=== PATIENT | female | born 1945 | race Caucasian/White ===

== ENCOUNTER 2022-06-09 14:16 | Outpatient (CLI) | payer MEDICARE, BC ==
[~2022-06-09 14:16] MED LIST: ACET-2615 PO; ALBU8.5H17 IH; BUPR150T23 PO; CALC-995 PO; CHOL100046 PO; CODE118S2 PO; FLUO10CA PO; FLUT16SP2 BOTHNARES; FLUT1DIS INH; GUAI-425 PO; IBUP-24 PO; LACT1CAP77 PO; LEVO25TA2 PO; MONT-40 PO; OMEP20TA43 PO; Rolaids PO; SIMV-42 PO; ZOLP5TAB8 PO
== END 2022-06-09 23:59 | disposition home or self-care (01) ==
LOC: RAD 14:16
PROVIDERS: ATTEND Internal Medicine Pulmonary Disease
DX: K21.9 Gastro-esophageal reflux disease without esophagitis (principal); R13.14 Dysphagia, pharyngoesophageal phase
CPT/HCPCS: 74230

== ENCOUNTER 2023-02-10 13:15 | Emergency (ER) | payer MEDICARE, BC ==
[~2023-02-10] VITALS: Ht 162.6 cm; Wt 78.6 kg
[2023-02-10 13:34] LABS: BASOPHILS # (AUTO) 0.1 X10'3 (0-0.2); BASOPHILS % (AUTO) 0.9 % (0-1); EOSINOPHILS # (AUTO) 0.6 X10'3 (0-0.9); EOSINOPHILS % (AUTO) 8.4 % (0-6); HEMATOCRIT 35.2 % (35.0-45.0); HEMOGLOBIN 11.7 g/dl (12.0-16.0); LYMPHOCYTES % (AUTO) 15.8 % (21-51); MEAN CORPUSCULAR HEMOGLOBIN 30.1 PG (27.0-31.0); MEAN CORPUSCULAR HGB CONC 33.2 g/dL (33.0-36.5); MEAN CORPUSCULAR VOLUME 90.9 FL (78-98); MEAN PLATELET VOLUME 8.3 FL (7.4-10.4); MONOCYTES # (AUTO) 0.6 X10'3 (0-0.9); MONOCYTES % (AUTO) 8.6 % (2-12); NEUTROPHILS # (AUTO) 4.4 X10'3 (1.8-7.7); NEUTROPHILS % (AUTO) 66.3 % (42-75); PLATELET COUNT 262 X10'3 (140-440); RED BLOOD COUNT 3.88 X10'6 (4.20-5.60); RED CELL DISTRIBUTION WIDTH 14.1 % (11.5-14.5); WHITE BLOOD COUNT 6.6 X10'3 (4.5-11.0)
[2023-02-10 13:49] LABS: ALANINE AMINOTRANSFERASE 17 U/L (12-78); ALBUMIN 3.4 G/DL (3.4-5.0); ALKALINE PHOSPHATASE 75 IU/L (46-116); ANION GAP 6 (8-16); ASPARTATE AMINO TRANSFERASE 20 U/L (10-37); BILIRUBIN,TOTAL 0.2 MG/DL (0.1-1.0); BLOOD UREA NITROGEN 23 MG/DL (7-18); BUN/CREATININE RATIO 20.7 (10.0-20.0); CALCIUM 8.7 MG/DL (8.5-10.1); CHLORIDE 105 MMOL/L (99-107); CREATININE 1.11 MG/DL (0.40-0.90); GLUCOSE 112 MG/DL (70-104); POTASSIUM 4.3 MMOL/L (3.5-5.1); SODIUM 136 MMOL/L (135-145); TOTAL CARBON DIOXIDE 25.5 MMOL/L (24-32); TOTAL PROTEIN 6.9 G/DL (6.4-8.2); eGFR 48 ML/MIN
[2023-02-10 13:56] LABS: MAGNESIUM 1.9 MG/DL (1.5-2.4)
[2023-02-10 14:32] LABS: LIPASE 116 U/L (73-393)
[2023-02-10 14:49] VITALS: BP 91/57
[2023-02-10] MEDS ORDERED: LEVO25TA2 PO (15:13)
[2023-02-10] MEDS ORDERED: OMEP20TA43 PO (15:13)
[2023-02-10] MEDS ORDERED: CARV-50 PO (15:13)
[2023-02-10] MEDS ORDERED: ESCI5TAB PO (15:13)
[2023-02-10] MEDS ORDERED: VALS80TA2 PO (15:13)
[2023-02-10] MEDS ORDERED: VALS160T2 PO (15:23)
== END 2023-02-10 15:46 | disposition home or self-care (01) ==
LOC: ER 13:16
DX: I95.9 Hypotension, unspecified (principal); K21.9 Gastro-esophageal reflux disease without esophagitis; J45.909 Unspecified asthma, uncomplicated; Z79.899 Other long term (current) drug therapy
CPT/HCPCS: 36415; 80053; 83690; 83735; 83880; 84484; 85025; 93005; 99284

== ENCOUNTER 2023-12-28 08:52 | Outpatient (CLI) | payer MEDICARE, BC ==
[2023-12-28] VITALS (8 sets, daily range): BP systolic 143–195; BP diastolic 65–93; PULSE 67–88; RESP 14–18; O2SAT 99–100
[~2023-12-28] VITALS: Ht 165.1 cm; Wt 81.2 kg
[~2023-12-28 08:52] MED LIST changes: -BUPR150T23 PO; +CARV-50 PO; +ESCI5TAB PO; -FLUO10CA PO; -FLUT1DIS INH; -IBUP-24 PO; -MONT-40 PO; +VALS80TA2 PO
[2023-12-28] MEDS ORDERED: normal saline 500ml IV soln 500 ML IV ONE (09:45)
[2023-12-28] MEDS ORDERED: nitroGLYCERIN 0.4mg SUBLingual tab SL PRN (09:45)
[2023-12-28] MEDS ORDERED: metoprolol tartrate 1mg/ml inj IV PRN (09:45)
[2023-12-28] MEDS: regadenoson 0.4mg/5ml syringe IV ONE (09:45)
== END 2023-12-28 23:59 | disposition home or self-care (01) ==
LOC: RAD 08:52
PROVIDERS: ATTEND Internal Medicine Cardiovascular Disease
DX: I25.9 Chronic ischemic heart disease, unspecified (principal); R07.9 Chest pain, unspecified; R06.02 Shortness of breath
CPT/HCPCS: 78452; 93017; A9500; J2785; J7040

== ENCOUNTER 2024-01-06 10:11 | Day surgery (SDC) | payer MEDICARE, BC ==
[2024-01-05 12:32] LABS: BASOPHILS # (AUTO) 0.1 X10'3 (0-0.2); BASOPHILS % (AUTO) 0.8 % (0-1); EOSINOPHILS # (AUTO) 0.2 X10'3 (0-0.9); EOSINOPHILS % (AUTO) 3.4 % (0-6); HEMATOCRIT 34.8 % (35.0-45.0); HEMOGLOBIN 11.4 g/dl (12.0-16.0); LYMPHOCYTES # (AUTO) 0.9 X10'3 (1.1-4.8); LYMPHOCYTES % (AUTO) 13.2 % (21-51); MEAN CORPUSCULAR HEMOGLOBIN 29.3 PG (27.0-31.0); MEAN CORPUSCULAR HGB CONC 32.8 g/dL (33.0-36.5); MEAN CORPUSCULAR VOLUME 89.4 FL (78-98); MONOCYTES # (AUTO) 0.9 X10'3 (0-0.9); NEUTROPHILS % (AUTO) 70.6 % (42-75); PLATELET COUNT 284 X10'3 (140-440); RED BLOOD COUNT 3.89 X10'6 (4.20-5.60); RED CELL DISTRIBUTION WIDTH 15.1 % (11.5-14.5); WHITE BLOOD COUNT 7.1 X10'3 (4.5-11.0)
[~2024-01-06] VITALS: Ht 162.6 cm; Wt 85.0 kg
[2024-01-06] VITALS (10 sets, daily range): BP systolic 123–162; BP diastolic 50–90; PULSE 67–100; RESP 14–19; TEMP 98.1; O2SAT 95–98
[2024-01-06] MEDS ORDERED: ESCI20TA39 PO (10:48)
[2024-01-06] MEDS ORDERED: LEVO125T68 (10:48)
[2024-01-06] MEDS ORDERED: MECO10005 PO (10:48)
[2024-01-06] MEDS ORDERED: FLUT1BLS10 (10:48)
[2024-01-06] MEDS ORDERED: FERR-119 PO (10:48)
[2024-01-06] MEDS ORDERED: BENZ-38 PO (10:48)
[2024-01-06] MEDS ORDERED: TRAM50TA2 PO (10:48)
[2024-01-06 10:56] LABS: BASOPHILS % (AUTO) 0.8 % (0-1); EOSINOPHILS # (AUTO) 0.3 X10'3 (0-0.9); EOSINOPHILS % (AUTO) 4.3 % (0-6); HEMATOCRIT 35.1 % (35.0-45.0); HEMOGLOBIN 11.6 g/dl (12.0-16.0); LYMPHOCYTES % (AUTO) 15.2 % (21-51); MEAN CORPUSCULAR HEMOGLOBIN 29.3 PG (27.0-31.0); MEAN CORPUSCULAR HGB CONC 32.9 g/dL (33.0-36.5); MEAN CORPUSCULAR VOLUME 88.9 FL (78-98); MONOCYTES # (AUTO) 0.6 X10'3 (0-0.9); MONOCYTES % (AUTO) 9.4 % (2-12); NEUTROPHILS # (AUTO) 4.5 X10'3 (1.8-7.7); NEUTROPHILS % (AUTO) 70.3 % (42-75); PLATELET COUNT 299 X10'3 (140-440); RED BLOOD COUNT 3.95 X10'6 (4.20-5.60); RED CELL DISTRIBUTION WIDTH 15.1 % (11.5-14.5); WHITE BLOOD COUNT 6.4 X10'3 (4.5-11.0)
[2024-01-06 11:07] LABS: APTT 27 SECONDS (22-32); PROTHROMBIN TIME 10.6 SECONDS (9.0-12.0)
[2024-01-06] MEDS: normal saline 1,000 ML IV SCH (11:08)
[2024-01-06 11:09] LABS: ALBUMIN 3.2 G/DL (3.4-5.0); ANION GAP 12 (8-16); BLOOD UREA NITROGEN 19 MG/DL (7-18); BUN/CREATININE RATIO 21.1 (10.0-20.0); CALCIUM 8.7 MG/DL (8.5-10.1); CHLORIDE 103 MMOL/L (99-107); GLUCOSE 92 MG/DL (70-104); POTASSIUM 4.4 MMOL/L (3.5-5.1); SODIUM 141 MMOL/L (135-145); TOTAL CARBON DIOXIDE 26.4 MMOL/L (24-32); eCRCL 44 ML/MIN; eGFR 61 ML/MIN
[2024-01-06] MEDS: LORazepam 0.5 MG tablet PO PRN (11:09)
[2024-01-06] MEDS: diphenhydrAMINE 25mg capsule PO PRN (11:09)
[2024-01-06] MEDS ORDERED: iohexol 350MG/ML 100ml bottle IV ONE (11:40)
[2024-01-06] MEDS ORDERED: LIDOcaine 1% (10mg/ml) 2ml vial ONE (11:40)
[2024-01-06] MEDS ORDERED: verapamil 2.5 mg/ml inj IV ONE (11:40)
[2024-01-06] MEDS ORDERED: iohexol 350 MG/ML 50ML vial IV ONE ×2 (11:40→13:30)
[2024-01-06] MEDS ORDERED: nitroGLYCERIN 500mcg/5mL D5W 5 ML IV ONE (11:41)
[2024-01-06] MEDS ORDERED: fentaNYL/PF 50MCG/1 ML 2ML syringe ONE (11:41)
[2024-01-06] MEDS ORDERED: midazolam 1 mg/ML 2ml injection ONE (11:41)
[2024-01-06] MEDS ORDERED: heparin 1,000unit/ml 10ml vial 10 ML ONE (11:41)
[2024-01-06] MEDS ORDERED: LIDOcaine 1% 30ml preserv. free vial ONE (13:04)
[2024-01-06] MEDS ORDERED: hydrALAZINE 20mg/ml inj. IV ONE (13:26)
[2024-01-06 13:57] LABS: ISTAT HGB ART 10.5 g/dl (12.0-16.0); ISTAT Hct ART 31 %PCV (35-45); ISTAT O2 SATURATION ARTERIAL 97 % (95-98); ISTAT SOURCE ART
[2024-01-09 06:34] LABS: ISTAT HGB MIX 11.2 g/dl (12.0-16.0); ISTAT Hct MIX 33 %PCV (35-45); ISTAT O2 SATURATION MIX VENOUS 69 % (60-80); ISTAT SOURCE OTHER
== END 2024-01-06 18:00 | disposition home or self-care (01) ==
LOC: SSTAY O 10:11
PROVIDERS: ATTEND Internal Medicine Cardiovascular Disease
DX: R94.39 Abnormal result of other cardiovascular function study (principal); I10 Essential (primary) hypertension; E03.9 Hypothyroidism, unspecified; E78.5 Hyperlipidemia, unspecified; J45.909 Unspecified asthma, uncomplicated; E66.3 Overweight; Z79.899 Other long term (current) drug therapy; Z90.710 Acquired absence of both cervix and uterus; Z98.890 Other specified postprocedural states; Z68.32 Body mass index [BMI] 32.0-32.9, adult; Z82.49 Family history of ischemic heart disease and other diseases of the circulatory system; Z82.3 Family history of stroke
CPT/HCPCS: 36415; 76937; 80048; 82803; 82948; 85014; 85025; 85610; 85730; 93005; 93460; 99152; 99153; J0360; J1644; J2250; J3010; J3490; J7030; Q0163; Q9967; A6258; A6402; A6449; C1725; C1751; C1769; C1894

== ENCOUNTER 2024-12-26 01:03 | Emergency (ER) | payer MEDICARE, BC ==
[~2024-12-26] VITALS: Ht 160 cm; Wt 77.0 kg
[~2024-12-26 01:03] MED LIST changes: -ALBU8.5H17 IH; +BENZ-38 PO; -CARV-50 PO; -CODE118S2 PO; +ESCI20TA39 PO; -ESCI5TAB PO; +FERR-119 PO; +FLUT1BLS10; -LACT1CAP77 PO; +LEVO125T68; -LEVO25TA2 PO; +MECO10005 PO; -Rolaids PO; +TRAM50TA2 PO; -VALS80TA2 PO
[2024-12-26 01:11] VITALS: TEMP 98.8
[2024-12-26 01:51] LABS: BASOPHILS % (AUTO) 0.6 % (0-1); EOSINOPHILS # (AUTO) 0.1 X10'3 (0-0.9); EOSINOPHILS % (AUTO) 1.2 % (0-6); HEMATOCRIT 34.6 % (35.0-45.0); HEMOGLOBIN 11.6 g/dl (12.0-16.0); LYMPHOCYTES # (AUTO) 0.5 X10'3 (1.1-4.8); LYMPHOCYTES % (AUTO) 7.7 % (21-51); MEAN CORPUSCULAR HEMOGLOBIN 29.8 PG (27.0-31.0); MEAN CORPUSCULAR HGB CONC 33.4 g/dL (33.0-36.5); MEAN CORPUSCULAR VOLUME 89.2 FL (78-98); MONOCYTES # (AUTO) 0.7 X10'3 (0-0.9); MONOCYTES % (AUTO) 9.2 % (2-12); NEUTROPHILS # (AUTO) 5.8 X10'3 (1.8-7.7); NEUTROPHILS % (AUTO) 81.3 % (42-75); PLATELET COUNT 243 X10'3 (140-440); RED BLOOD COUNT 3.88 X10'6 (4.20-5.60); RED CELL DISTRIBUTION WIDTH 14.2 % (11.5-14.5); WHITE BLOOD COUNT 7.1 X10'3 (4.5-11.0)
[2024-12-26 01:59] LABS: ALBUMIN 3.4 G/DL (3.4-5.0); ANION GAP 7 (8-16); BLOOD UREA NITROGEN 19 MG/DL (7-18); BUN/CREATININE RATIO 20.2 (10.0-20.0); CALCIUM 8.6 MG/DL (8.5-10.1); CHLORIDE 100 MMOL/L (99-107); CREATININE 0.94 MG/DL (0.40-0.90); GLUCOSE 110 MG/DL (70-104); MAGNESIUM 1.7 MG/DL (1.5-2.4); POTASSIUM 4.1 MMOL/L (3.5-5.1); PRO BRAIN NATRIURETIC PEPTIDE 601 PG/ML (0-450); SODIUM 136 MMOL/L (135-145); TOTAL CARBON DIOXIDE 29.2 MMOL/L (24-32); eCRCL 40 ML/MIN; eGFR 57 ML/MIN
[2024-12-26] MEDS: ketorolac trometh 15mg/ml vial 15 MG/ML ML IV ONE (02:21)
[2024-12-26] MEDS: acetaminophen 1,000mg/100ml IV 100 ML IV ONE (02:22)
[2024-12-26] MEDS: normal saline 1000ml 1,000 ML IV ONE (02:22)
[2024-12-26 02:59] LABS: BILIRUBIN,URINE NEGATIVE (Neg); CLARITY,URINE CLEAR (Clear); COLOR,URINE YELLOW (Yellow); GLUCOSE, URINE NEGATIVE (Neg); KETONES,URINE NEGATIVE (Neg); LEUKOCYTE ESTERASE ,URINE SMALL (Neg); NITRITES, URINE NEGATIVE (Neg); OCCULT BLOOD,URINE TRACE-INTACT (Neg); PH,URINE 6.5 (4.8-8.0); PROTEIN,URINE NEGATIVE (Neg); UROBILINOGEN,URINE 0.2 E.U/dL (0.2-1.0)
[2024-12-26 03:17] LABS: UA COLLECTION TYPE CLN CATCH MIDSTREAM
[2024-12-26 03:18] LABS: BACTERIA,URINE 2+ /HPF (Neg); RBC,URINE 0-2 /HPF (0-2); SQUAMOUS EPITHELIAL CELL,UR FEW /LPF (FEW)
[2024-12-26] MEDS ORDERED: NIRM1TAB7 PO (03:32)
[2024-12-26] MEDS ORDERED: AZIT-164 PO (03:32)
[2024-12-26 03:56] VITALS: BP 129/58; PULSE 65; RESP 15; O2SAT 99
[2024-12-26] MEDS ORDERED: DEXT1TAB13 PO (04:38)
== END 2024-12-26 04:46 | disposition home or self-care (01) ==
LOC: ER 01:04
DX: U07.1 COVID-19 (principal); J45.909 Unspecified asthma, uncomplicated; K21.9 Gastro-esophageal reflux disease without esophagitis
CPT/HCPCS: 36415; 71045; 80048; 81001; 83605; 83735; 83880; 84145; 84484; 85025; 87040; 87088; 87502; 87503; 87811; 93005; 96365; 96375; 99285; J0131; J1885; J7030